=== PATIENT | female | born 1995 | race African-American/Black ===

== ENCOUNTER 2017-10-26 00:13 | Emergency (ER) | payer OTHER ==
[~2017-10-26] VITALS: Ht 157.5 cm; Wt 73.6 kg
[~2017-10-26 00:13] MED LIST: BACTRIM,SEPT1 TABLET PO; BENTYL10 MG PO; CLONIDINE HCL0.1 MG PO; FLUOXETINE HCL20 MG PO; PROZAC20 MG PO; ZOFRAN4 MG PO
[2017-10-26 00:50] LABS: HEMATOCRIT 37.1 % (36.0-46.0); HEMOGLOBIN 12.3 G/DL (11.9-15.5); MCH 30.4 PG (29.0-34.0); MCHC 33.2 G/DL (30.0-36.0); MCV 91.8 FL (83-99); RBC DIS.WIDTH-CV 12.4 % (11.8-14.6); RBC DIS.WIDTH-SD 41.7 % (39-53); RED BLOOD COUNT 4.04 M/uL (3.80-5.20); WHITE BLOOD COUNT 11.1 K/uL (4.1-10.2)
[2017-10-26 00:58] LABS: CHLORIDE 107 mEq/L (99-109); POTASSIUM 4.1 mEq/L (3.7-5.4); SODIUM 140 mEq/L (136-147)
[2017-10-26 01:00] LABS: GLUCOSE 99 mg/dL (70-99); TOTAL PROTEIN 7.6 g/dL (6.4-8.3)
[2017-10-26 01:02] LABS: TOTAL BILIRUBIN 0.1 mg/dL (0.0-1.0)
[2017-10-26 01:04] LABS: ALKALINE PHOSPHATASE 52 IU/L (3-129); CREATININE 0.8 mg/dL (0.6-1.3); GFR ESTIMATE (CALCULATED) > 59 mL/min/
[2017-10-26 01:05] LABS: UREA NITROGEN (BUN) 13 mg/dL (9-23)
[2017-10-26 01:06] LABS: AST (GOT) 13 IU/L (2-34)
[2017-10-26 01:07] LABS: ALT (GPT) 12 IU/L (3-49)
[2017-10-26 01:15] LABS: QUANTITATIVE HCG < 4.0 MIU/ML
[2017-10-26 01:30] LABS: APPEARANCE CLOUDY ((CLEAR)); BILIRUBIN NEGATIVE; BLOOD NEGATIVE; COLOR YELLOW ((YELLOW)); GLUCOSE (STRIP) NEGATIVE; KETONES NEGATIVE; LEUKOCYTES NEGATIVE; NITRITE NEGATIVE; PROTEIN (STRIP) NEGATIVE; SPECIFIC GRAVITY 1.023 (1.000-1.030); UROBILINOGEN 0.2 MG/DL (0.2-1.0)
[2017-10-26 01:47] LABS: AMORPHOUS PHOSPHATE CRYSTALS 3+; BACTERIA RARE /HPF; EPITHELIAL CELLS RARE /HPF; MUCUS NONE SEEN /LPF; RED BLOOD CELLS NONE SEEN /HPF (0-5); UCUL ADDED? NO; WHITE BLOOD CELLS 0-5 /HPF (0-5)
[2017-10-26 02:31] LABS: PLAT.SUFFICIENCY ADEQUATE; PLATELET COUNT 272 K/uL (156-360)
[2017-10-26] MEDS ORDERED: ZOFRAN ODT4 MG PO (02:38)
[2017-10-26 02:52] VITALS: BP 132/80
== END 2017-10-26 02:53 | disposition home or self-care (01) ==
LOC: EME 00:13
DX: R11.2 Nausea with vomiting, unspecified (principal); J45.909 Unspecified asthma, uncomplicated
CPT/HCPCS: 80053; 81003; 84702; 85027; 99281; 99284; J2405; J7030